=== PATIENT | female | born 1960 ===

== ENCOUNTER 2018-02-27 21:41 | Emergency (ER) | payer OTHER ==
[~2018-02-27] VITALS: Ht 160 cm; Wt 70.3 kg
[~2018-02-27 21:41] MED LIST: AVAPRO150 MG PO
[2018-02-27] MEDS ORDERED: LOSARTAN POTASS25 MG (23:24)
== END 2018-02-28 10:25 | disposition home or self-care (01) ==
LOC: ER 21:41
DX: R10.11 Right upper quadrant pain (principal)